=== PATIENT | female | born 1955 | race Two or more races ===

== ENCOUNTER 2025-07-07 10:20 | Emergency (ER) | payer MEDICARE, OTHER ==
[~2025-07-07] VITALS: Ht 152.4 cm; Wt 51.7 kg
[2025-07-07] MEDS ORDERED: DOXY100C2 PO (10:49)
[2025-07-07] MEDS ORDERED: CEPH-570 PO (10:49)
[2025-07-07 11:02] VITALS: BP 145/80; TEMP 98.1; O2SAT 99
== END 2025-07-07 11:02 | disposition home or self-care (01) ==
LOC: ER 10:38
DX: L02.224 Furuncle of groin (principal); F43.10 Post-traumatic stress disorder, unspecified; F32.A Depression, unspecified; Z90.49 Acquired absence of other specified parts of digestive tract; Z90.89 Acquired absence of other organs